=== PATIENT | male | born 1970 | race Caucasian/White ===

== ENCOUNTER 2017-02-20 10:23 | Emergency (ER) | payer OTHER ==
[2017-02-20] MEDS ORDERED: LIDOCAINE 1% INJ-PF (10 MG/ML) 30 ML SDV INJ ONE (10:39)
[2017-02-20] MEDS ORDERED: HYDROMORPHONE HCL INJ/PF 2 MG/ML AMPULE IV ONE (10:39)
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
[2017-02-20 11:34] VITALS: BP 160/98
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
--- NOTE | 2017-02-20 14:15 | EKG REPORT ---
SEVERITY:- ABNORMAL ECG - SINUS RHYTHM NON PROGRESSION OF R WAVE V1-V3, CONSIDER ANTEROSEPTAL INFARCT : Confirmed by: Viji Chávez 20-Feb-2017 14:14:24
== END 2017-02-20 14:07 | disposition home or self-care (01) ==
LOC: ER 10:23
PROC: 0HQ0XZZ Repair Scalp Skin, External Approach (ICD-10-PCS; principal; 2017-02-20)
DX: S01.81XA Laceration without foreign body of other part of head, initial encounter (principal); S80.10XA Contusion of unspecified lower leg, initial encounter; S30.1XXA Contusion of abdominal wall, initial encounter; M54.9 Dorsalgia, unspecified; V89.2XXA Person injured in unspecified motor-vehicle accident, traffic, initial encounter; E78.00 Pure hypercholesterolemia, unspecified; I10 Essential (primary) hypertension; J44.9 Chronic obstructive pulmonary disease, unspecified
CPT/HCPCS: 93005; 99284; 96374; 73564; 73590; 70450; 70486; 71260; 72125; 74177; 93010; J3490; J1170